=== PATIENT | female | born 1980 | race Hispanic/Latino ===

== ENCOUNTER 2018-08-10 16:59 | Emergency (ER) | payer SELFPAY ==
--- NOTE | 2018-08-10 17:23 | Emergency Department Report ---
Blank Doc - Documentation Documentation: 38 year old female presents to Ed cc of fall earlier today and think she may ruvalcaba ve broken her left pinky finger xr acc eval
--- NOTE | 2018-08-10 18:35 | XRay Report ---
PROCEDURE: XR FINGER(S) 2+V LT TECHNIQUE: Left fifth finger 3 views HISTORY: fall/lt 5th digit pain COMPARISONS: FINDINGS: There is acute traumatic dislocation at the PIP joint fifth digit. The middle phalanx is dorsally dis located. A small chip fracture is seen volar aspect just adjacent to the head of the proximal phalanx Remaining joint spaces are within normal limits. No radiopaque foreign bodies are seen. IMPRESSION: Dorsal dislocation at the PIP joint fifth digit Small chip fracture noted. This document is electronically signed by Johan De Los Santos MD., August 10 2018 07:33:37 PM ET
[2018-08-10] MEDS ORDERED: NORCO 7.5/325 PO ONE (20:05)
--- NOTE | 2018-08-10 20:15 | Emergency Department Report ---
ED Fall HPI - General Chief Complaint: Fall Stated Complaint: INJURED LT PINKY FINGER Time Seen by Provider: 08/10/18 17:12 Source: patient Mode of arrival: Ambulatory - History of Present Illness Initial Comments: Pt is a 38 year old female who presents to the ED s/p a fall that occurred at 2 AM this morning. She states she was coming down the steps and tripped and fell. she states she fell down 4 steps. The patient states she braced her self with her left hand and landed against the door. she has left pinky pain and deformity to the left pinky. She states she has not been able move the pinky. She states she also has abrasions to the face. She denies any facial pain. she denies any LOC, numbness, or weakness. she states her last tetanus was one year ago. - Related Data Previous Rx's Medication Instructions Recorded Last Taken Type Acetaminophen/Codeine [Tylenol 1 tab PO Q6H PRN #7 tab 08/10/18 Unknown Rx /Codeine # 3 tab] Allergies Allergy/AdvReac Type Severity Reaction Status Date / Time No Known Allergies Allergy Unverified 08/10/18 17:01 ED Review of Systems ROS: Stated complaint: INJURED LT PINKY FINGER Other details as noted in HPI Comment: All other systems reviewed and negative ED Past Medical Hx - Past Medical History Previous Medical History?: No - Surgical History Past Surgical History?: No - Social History Smoking Status: Current Every Day Smoker Substance Use Type: None - Medications Home Medications: Home Medications Medication Instructions Recorded Confirmed Last Taken Type Acetaminophen/Codeine [Tylenol 1 tab PO Q6H PRN #7 tab 08/10/18 Unknown Rx /Codeine # 3 tab] ED Physical Exam - General Limitations: No Limitations General appearance: alert, in no apparent distress - Head Head exam: Present: normocephalic, other (small abrasions to the nose, no TTP of the facial bones) - Eye Eye exam: Present: normal appearance - ENT ENT exam: Present: mucous membranes moist - Respiratory Respiratory exam: Present: normal lung sounds bilaterally. Absent: respiratory distress, wheezes, rales, rhonchi, stridor, chest wall tenderness, accessory muscle use, decreased breath sounds, prolonged expiratory - Cardiovascular Cardiovascular Exam: Present: regular rate, normal rhythm, normal heart sounds. Absent: systolic murmur, diastolic murmur, rubs, gallop - Extremities Exam Extremities exam: Present: other (TTP over the PIP and DIP of the left pinky, left pinky PIP is in the flexed position, neurovascularly intact) - Neurological Exam Neurological exam: Present: alert, oriented X3 - Psychiatric Psychiatric exam: Present: normal affect, normal mood - Skin Skin exam: Present: warm, dry, intact ED Course Vital Signs 08/10/18 08/10/18 08/10/18 17:12 21:29 22:21 Temperature 98.1 F 98.3 F Pulse Rate 113 H 93 H Respiratory 18 18 18 Rate Blood Pressure 139/85 Blood Pressure 146/84 [Left] O2 Sat by Pulse 99 96 Oximetry ED Medical Decision Making - Radiology Data Radiology results: report reviewed PROCEDURE: XR FINGER(S) 2+V LT TECHNIQUE: Left fifth finger 3 views HISTORY: fall/lt 5th digit pain COMPARISONS: FINDINGS: There is acute traumatic dislocation at the PIP joint fifth digit. The middle phalanx is dorsally dislocated. A small chip fracture is seen volar aspect just adjacent to the head of the proximal phalanx Remaining joint spaces are within normal limits. No radiopaque foreign bodies are seen. IMPRESSION: Dorsal dislocation at the PIP joint fifth digit Small chip fracture noted. This document is electronically signed by Johan De Los Santos MD., August 10 2018 07:33:37 PM PROCEDURE: Left little finger. TECHNIQUE: 3 views. HISTORY: Post reduction. COMPARISONS: Left little finger done earlier today. FINDINGS: The dislocation has been reduced. There are no definite fractures identified. IMPRESSION: Successful reduction. This document is electronically signed by Faheem Mccauley MD., August 10 2018 10:52:29 PM ET Transcribed By: [facility] Dictated By: FAHEEM MCCAULEY MD Electronically Authenticated By: FAHEEM MCCAULEY MD Signed Date/Time: 08/10/18 3679 - Medical Decision Making Pt is a 38 year old female who presents to the ED s/p a fall that occurred at 2 AM this morning. She states she was coming down the steps and tripped and fell. she states she fell down 4 steps. The patient states she braced her self with her left hand and landed against the door. she has left pinky pain and deformity to the left pinky. She states she has not been able move the pinky. She states she also has abrasions to the face. She denies any facial pain. she denies any LOC, numbness, or weakness. she states her last tetanus was one year ago. initial XR of the left pinky shows Dorsal dislocation at the PIP joint fifth digit, Small chip fracture noted. pt given pain medication and reduction performed. post reduction XR of the left pinky shows The dislocation has been reduced. There are no definite fractures identified. s/p reduction pt is neurovascularly intact, brisk cap refill, FROM of the left pinky without difficulty. pt placed in finer splint. discussed to please follow up with Dr. Little, orthopedic in the next 2-3 days. ice and rest the finger. may take tylenol or ibuprofen for discomfort. for severe pain may take tylenol [address] operate heavy machinery while taking. return to the emergency room for any new or worsening symptoms. keep your abrasions clean and dry. follow up with primary care doctor in the next 2-3 days. observe for signs of infection of the abrasions. Critical care attestation.: If time is entered above; I have spent that time in minutes in the direct care of this critically ill patient, excluding procedure time. ED Disposition Clinical Impression: Reduction defect of extremity, Abrasion, face w/o infection Finger dislocation Qualifiers: Encounter type: initial encounter Qualified Code(s): S63.259A - Unspecified dislocation of unspecified finger, initial encounter Disposition: TO HOME OR SELFCARE Is pt being admited?: No Does the pt Need Aspirin: No Condition: Stable Instructions: Finger Dislocation (ED), Abrasion (ED) Additional Instructions: please follow up with Dr. Little orthopedic in the next 2-3 days. ice and rest the finger. may take tylenol or ibuprofen for discomfort. return to the emergency room for any new or worsening symptoms. keep your abrasions clean and dry. follow up with primary care doctor in the next 2-3 days. observe for signs of infection. Prescriptions: Acetaminophen/Codeine [Tylenol /Codeine # 3 tab] 1 tab PO Q6H PRN #7 tab PRN Reason: Pain , Severe (7-10) Referrals: [facility] [Primary Care Provider] - 2-3 Days KATHRIN LITTLE MD [Staff Physician] - 2-3 Days Time of Disposition: 22:00 Print Language: WOLOF
--- NOTE | 2018-08-10 21:54 | XRay Report ---
PROCEDURE: Left little finger. TECHNIQUE: 3 views. HISTORY: Post reduction. COMPARISONS: Left little finger done earlier today. FINDINGS: The dislocation has been reduced. There are no definite fractures identified. IMPRESSION: Successful reduction. This document is electronically signed by Faheem Carney MD., August 10 2018 10:52:29 PM ET
[2018-08-10 22:21] VITALS: BP 146/84
== END 2018-08-10 22:40 | disposition home or self-care (01) ==
LOC: ED 16:59
DX: S62.617A Displaced fracture of proximal phalanx of left little finger, initial encounter for closed fracture (principal); S00.31XA Abrasion of nose, initial encounter; F17.200 Nicotine dependence, unspecified, uncomplicated; Z79.899 Other long term (current) drug therapy; W10.9XXA Fall (on) (from) unspecified stairs and steps, initial encounter; Y93.89 Activity, other specified; Y92.89 Other specified places as the place of occurrence of the external cause; Y99.8 Other external cause status
CPT/HCPCS: 99283